=== PATIENT | female | born 1955 | race Caucasian/White ===

== ENCOUNTER 2021-07-23 19:03 | Emergency (ER) | payer MEDICARE, OTHER ==
[~2021-07-23 19:03] MED LIST: KEFLEX500 MG PO
== END 2021-07-23 22:08 | disposition home or self-care (01) ==
LOC: FER 19:03
DX: M25.531 Pain in right wrist (principal); I10 Essential (primary) hypertension; W19.XXXA Unspecified fall, initial encounter
CPT/HCPCS: 73110; 73200

== ENCOUNTER 2021-12-07 20:35 | Emergency (ER) | payer MEDICARE, OTHER | END 2021-12-08 00:35 | disposition left against medical advice (07) | LOC: FER 20:35 | DX: M79.602 Pain in left arm (principal); M25.532 Pain in left wrist; M25.512 Pain in left shoulder; I10 Essential (primary) hypertension; G20 Parkinson's disease; Z53.29 Procedure and treatment not carried out because of patient's decision for other reasons; W01.0XXA Fall on same level from slipping, tripping and stumbling without subsequent striking against object, initial encounter; Y93.89 Activity, other specified; Y92.89 Other specified places as the place of occurrence of the external cause | CPT/HCPCS: 73030; 73080; 73110; J1170 ==